=== PATIENT | male | born 1995 | race Caucasian/White ===

== ENCOUNTER 2019-04-24 06:14 | Day surgery (SDC) | payer OTHER ==
[~2019-04-24] VITALS: Ht 182.9 cm; Wt 93.5 kg
[2019-04-24] MEDS ORDERED: ACETAMINOPHEN 500 MG TABLET PO ONE (07:00)
[2019-04-24] MEDS ORDERED: ONDANSETRON PF 4 MG/2 ML VIAL. IV PRN (07:00)
[2019-04-24] MEDS ORDERED: PROCHLORPERAZINE 10 MG/2 ML VIAL. IV PRN (07:00)
[2019-04-24] MEDS ORDERED: IV RINGERS,LACTATED 1000ML 1,000 ML IV SCH (07:00)
[2019-04-24] MEDS ORDERED: HYDROmorphone 2 MG/ML VIAL IV PRN (07:00)
[2019-04-24] MEDS ORDERED: MORPHINE SULFATE 2 MG/ML VIAL. IV PRN (07:00)
[2019-04-24] MEDS ORDERED: fentaNYL PF VIAL 100 MCG/2 ML VIAL IV PRN (07:00)
[2019-04-24] MEDS ORDERED: BUPIVACAINE-EPI 0.25%-1:200000 MPF 30 ML VIAL. ONE (07:09)
[2019-04-24] MEDS ORDERED: LIDOCAINE 2% PF 5 ML VIAL. ONE (07:24)
[2019-04-24] MEDS ORDERED: DEXAMETHASONE SOD PHOS 4 MG/ML VIAL ONE (07:24)
[2019-04-24] MEDS ORDERED: PROPOFOL 20 ML IV ONE (07:24)
[2019-04-24] MEDS ORDERED: FAMOTIDINE 20 MG/2 ML VIAL ONE (07:25)
[2019-04-24] MEDS ORDERED: ROCURONIUM 50 MG/5 ML VIAL. ONE (07:25)
[2019-04-24] MEDS ORDERED: MIDAZOLAM HCL/PF 2 MG/2 ML VIAL. ONE (07:25)
[2019-04-24] MEDS ORDERED: ONDANSETRON PF 4 MG/2 ML VIAL. ONE (07:25)
[2019-04-24] MEDS ORDERED: GLYCOPYRROLATE 1 MG/5 ML VIAL. ONE (07:26)
[2019-04-24] MEDS ORDERED: NEOSTIGMINE METHYLSULFATE 5 MG/5 ML SYRINGE. ONE (07:26)
[2019-04-24] MEDS ORDERED: KETAMINE HCL IN NACL, ISO-OSM 50 MG/5 ML SYRINGE ONE (07:32)
[2019-04-24] MEDS ORDERED: fentaNYL PF VIAL 250 MCG/5 ML VIAL ONE (07:33)
[2019-04-24] MEDS ORDERED: MINERAL OIL for SURGERY 10 ML VIAL. MC ONE (07:35)
--- NOTE | 2019-04-24 07:49 | PDOC1 ---
History and Physical Date of Admission Date of Admission DATE: 04/24/19 TIME: 07:45 Identification/Chief Complaint Chief Complaint Right groin pain Source Source: Patient History of Present Illness History of Present Illness 23-year-old male who had bilateral inguinal hernia repairs done a couple years ago was recently been having some right groin pain extending to the left he feels like there is a bulge in his right groin recent ultrasound showed a recurrent hernia on the right side. Is also concerned about the left side because occasionally has pain there Past Medical History Cardiovascular: No pertinent hx Pulmonary: No pertinent hx GI: No pertinent hx Heme/Onc: No pertinent hx Hepatobiliary: No pertinent hx Psych: No pertinent hx Rheumatologic: No pertinent hx Infectious disease: No pertinent hx ENT: No pertinent hx Renal/: No pertinent hx Endocrine: No pertinent hx Dermatology: No pertinent hx Past Surgical History Past Surgical History: Hernia Repair Family History Family History: No Significant Social History Smoke: No ALCOHOL: none Drugs: None Current Medications Current Medications Current Medications Ondansetron HCl (Zofran) 4 mg PRN Q6HRS PRN IV NAUSEA/VOMITING; Start 04/24/19 at 07:00; Stop 04/25/19 at 06:59 Fentanyl Citrate (Fentanyl 2ml Vial) 25 mcg PRN Q5MIN PRN IV MILD PAIN 1-3; Start 04/24/19 at 07:00; Stop 04/25/19 at 06:59 Fentanyl Citrate (Fentanyl 2ml Vial) 50 mcg PRN Q5MIN PRN IV MODERATE TO SEVERE PAIN; Start 04/24/19 at 07:00; Stop 04/25/19 at 06:59 Morphine Sulfate (Morphine Sulfate) 1 mg PRN Q10MIN PRN IV SEVERE PAIN 7-10; Start 04/24/19 at 07:00; Stop 04/25/19 at 06:59 Ringer's Solution 1,000 ml @ 30 mls/hr Q24H IV Last administered on 04/24/19at 06:34; Start 04/24/19 at 07:00; Stop 04/24/19 at 18:59 Hydromorphone HCl (Dilaudid) 0.5 mg PRN Q10MIN PRN IV SEV PAIN, Second choice; Start 04/24/19 at 07:00; Stop 04/25/19 at 06:59 Prochlorperazine Edisylate (Compazine) 5 mg PACU PRN PRN IV NAUSEA, MRX1; Start 04/24/19 at 07:00; Stop 04/25/19 at 06:59 Cefazolin Sodium/ Dextrose 50 ml @ 100 mls/hr 1X PREOP PRN IV PRIOR TO PROCEDURE; Start 04/24/19 at 06:00; Stop 04/24/19 at 18:00 Acetaminophen (Tylenol) 1,000 mg 1X ONCE PO Last administered on 04/24/19at 06:46; Start 04/24/19 at 07:00; Stop 04/24/19 at 07:01; Status DC Bupivacaine HCl/ Epinephrine Bitart (Sensorcaine-Epi 0.25%-[id number] Mpf) 30 ml STK-MED ONCE .ROUTE ; Start 04/24/19 at 07:09; Stop 04/24/19 at 07:09; Status DC Propofol 20 ml @ As Directed STK-MED ONCE IV ; Start 04/24/19 at 07:24; Stop 04/24/19 at 07:24; Status DC Lidocaine HCl (Lidocaine Pf 2% Vial) 5 ml STK-MED ONCE .ROUTE ; Start 04/24/19 at 07:24; Stop 04/24/19 at 07:24; Status DC Dexamethasone Sodium Phosphate (Decadron) 4 mg STK-MED ONCE .ROUTE ; Start 04/24/19 at 07:24; Stop 04/24/19 at 07:25; Status DC Famotidine (Pepcid Vial) 20 mg STK-MED ONCE .ROUTE ; Start 04/24/19 at 07:25; Stop 04/24/19 at 07:25; Status DC Ondansetron HCl (Zofran) 4 mg STK-MED ONCE .ROUTE ; Start 04/24/19 at 07:25; Stop 04/24/19 at 07:25; Status DC Midazolam HCl (Versed) 2 mg STK-MED ONCE .ROUTE ; Start 04/24/19 at 07:25; Stop 04/24/19 at 07:25; Status DC Rocuronium May (Zemuron) 50 mg STK-MED ONCE .ROUTE ; Start 04/24/19 at 07:25; Stop 04/24/19 at 07:25; Status DC Neostigmine May (Neostigmine Methylsulfate) 5 mg STK-MED ONCE .ROUTE ; Start 04/24/19 at 07:26; Stop 04/24/19 at 07:26; Status DC Glycopyrrolate (Robinul) 1 mg STK-MED ONCE .ROUTE ; Start 04/24/19 at 07:26; Stop 04/24/19 at 07:26; Status DC Ketamine HCl (Ketamine) 50 mg STK-MED ONCE .ROUTE ; Start 04/24/19 at 07:32; Stop 04/24/19 at 07:32; Status DC Fentanyl Citrate (Fentanyl 5ml Vial) 250 mcg STK-MED ONCE .ROUTE ; Start 04/24/19 at 07:33; Stop 04/24/19 at 07:33; Status DC Mineral Oil (Muri-Lube) 10 ml STK-MED ONCE MC ; Start 04/24/19 at 07:35; Stop 04/24/19 at 07:35; Status DC Active Scripts Active Reported No Known Medications Prior To Admisstion (Info) Each 1 Each MC DAILY Allergies Allergies: Coded Allergies: No Known Drug Allergies (Unverified , 04/24/19) ROS Genitourinary: YES Pain (bilateral groins right greater than left) Physical Exam General: Alert, Oriented X3, Cooperative, No acute distress HEENT: Atraumatic, PERRLA, EOMI Lungs: Clear to auscultation, Normal air movement Heart: RRR, no murmurs Abdomen: Normal bowel sounds, Soft, No tenderness Male Genitals Exam: other (recurrent right inguinal hernia with tenderness) Rectal Exam: not examined Extremities: No edema Skin: No significant lesion Neuro: Normal gait, Normal speech Psych/Mental Status: Mental status NL Vitals Vitals Vital Signs Date Time Temp Pulse Resp B/P (MAP) Pulse Ox O2 Delivery O2 Flow Rate FiO2 04/24/19 06:26 98.2 68 16 99 98.2 04/24/19 06:15 119/57 Room Air Images Images Ultrasound as per the history of present illness VTE Prophylaxis Ordered VTE Prophylaxis Devices: Yes VTE Pharmacological Prophylaxi: Contraindicated Assessment/Plan Assessment/Plan Current right inguinal hernia plan robotic-assisted laparoscopic inguinal hernia repair will evaluate left side for recurrence also if present we'll repair DOLORES BARILLAS MD Apr 24, 2019 07:49
[2019-04-24] MEDS ORDERED: ceFAZolin 2GM PREMIX 2 GM/50 ML BAG IV ONE (08:00)
[2019-04-24] MEDS ORDERED: KETOROLAC 30 MG/ML VIAL. ONE (08:05)
[2019-04-24] MEDS ORDERED: ePHEDrine PF IN SALINE 50 MG/10 ML SYRINGE. IV ONE (08:16)
--- NOTE | 2019-04-24 08:27 | PDOC4 ---
Operative Note Operative Note Date: 04/24/2019 Preoperative diagnosis: Bilateral groin pain current right inguinal hernia Postoperative diagnosis: Bilateral groin pain no hernias visualized Procedure: Diagnostic laparoscopy Surgeon: Ace Findings: Well-placed mesh bilaterally appears on the right groin that the mesh has some small amount of inventration no defect Dictation: Patient is a 23-year-old male who had bilateral inguinal hernia repairs done laparoscopically approximately 3 years ago was recently been complaining of bilateral groin pain worse on the right than left and underwent ultrasound of the groins ultrasound was read as a recurrent inguinal hernia on the right. In light of this procedure of robotic-assisted laparoscopic inguinal hernia repair with mesh was explained to the patient detail risk benefits were also discussed including bleeding infection injury to intra-abdominal contents possibly necessitating further open and operations alternatives to this procedur e also discussed with patient who seemed to understand and gave both verbal and written consent to have the procedure performed. Patient was taken to the operating room placed in supine position general anesthesia was initiated once patient was sleep and intubated his legs were placed in low lithotomy positioning and his abdomen was prepped and draped usual sterile fashion using ChloraPrep. An area just above the umbilicus was injected with quarter percent Marcaine with epinephrine incision was made with 11 blade scalpel and a varies needle was placed within the abdomen creating pneumoperitoneum 8 mm da Cedric port was then placed and the da Cedric camera was placed within the abdomen which was inspected was noted that he had mesh in the bilateral groin left and right mesh appeared to be in good placement well incorporated no adhesions. Was noted on the right side that at the center portion of his mesh there was a small dynamic invention ration of the mesh which I believe is the reason why ultrasound said that there was a recurrent inguinal hernia on the right side. But there was no actual hernia defect. Similarly on the left appeared to be in good position with no hernia defects noted. This point the procedure was terminated the pneumoperitoneum was reduced port was removed and the port site was closed with 40 septic tumor Monocryl Mastisol Steri-Strips and island dressing were applied. Patient was awakened and bated in the operating room taken to recovery in stable condition all sponge instrument needle counts listed as correct estimated blood loss less than 5 mL DOLORES BARILLAS MD Apr 24, 2019 08:27
--- NOTE | 2019-04-24 08:29 | DISCH ---
DISCHARGE INSTRUCTIONS Condition on Discharge Condition on Discharge: Stable Activity After Discharge Activity Instructions for Disc: Avoid exertion Other activity instructions: no lifting more than 20 pounds for 2 weeks Diet after Discharge Diet after Discharge: Regular Wound Incision Care Other wound/incision instructi: May shower in 24 hours Contacting the after DC Call your doctor for: If your condition worsens Follow-Up Follow up with: Dr. Barillas in 2 weeks DOLORES BARILLAS MD Apr 24, 2019 08:29
[2019-04-24] MEDS: fentaNYL PF VIAL 100 MCG/2 ML VIAL IV PRN ×2 (08:46→09:00)
[2019-04-24] MEDS ORDERED: HYDROcodone/APAP 5/325MG 1 TAB TABLET PO ONE (09:15)
[2019-04-24 09:20] VITALS: BP 103/74
== END 2019-04-24 09:30 | disposition home or self-care (01) ==
LOC: SURG 06:14 → EEVIPCON 08:00 → SURG 09:30
PROVIDERS: ATTEND Surgery
DX: K40.20 Bilateral inguinal hernia, without obstruction or gangrene, not specified as recurrent (principal); Z98.890 Other specified postprocedural states; Z79.899 Other long term (current) drug therapy
CPT/HCPCS: 49320; A7015; J0171; J0696; J1100; J1885; J2001; J2250; J2405; J2704; J2710; J3010; J3490; S2900